=== PATIENT | male | born 1950 | race Caucasian/White ===

== ENCOUNTER 2017-04-02 11:02 | Emergency (ER) | payer OTHER ==
[~2017-04-02] VITALS: Ht 180.3 cm; Wt 89.4 kg
[~2017-04-02 11:02] MED LIST: AUGMENTIN875 MG PO; ELIQUIS5 MG PO; ENDOCET 5-3251 EACH PO; GABAPENTIN300 MG PO; IODOSORB40 GM TP; LEVAQUIN500 MG PO; LEVAQUIN750 MG PO; LEVEMIR100 UNIT/2 SC; NICOTINE PATCH1 EAC2 TD; NOVOLOG PE100 UNITS/ SC; PEN-VEE K,VEET500 MG PO; ROCEPHIN 2 GM VI2 GM IV; ULTRAM50 MG PO
[2017-04-02] MEDS ORDERED: LEVAQUIN750 MG PO (14:05)
[2017-04-02] MEDS ORDERED: ULTRACET1 TABLET PO (14:07)
[2017-04-02 14:21] VITALS: BP 98/55
== END 2017-04-02 14:23 | disposition home or self-care (01) ==
LOC: EME 11:02
DX: S20.211A Contusion of right front wall of thorax, initial encounter (principal); V49.40XA Driver injured in collision with unspecified motor vehicles in traffic accident, initial encounter; W22.10XA Striking against or struck by unspecified automobile airbag, initial encounter; Y92.488 Other paved roadways as the place of occurrence of the external cause; E11.9 Type 2 diabetes mellitus without complications; F17.200 Nicotine dependence, unspecified, uncomplicated
CPT/HCPCS: 71020; 73030; 99281; 99284; J1885